=== PATIENT | female | born 1935 | race Caucasian/White ===

== ENCOUNTER 2017-05-26 06:33 | Observation (INO) | payer MEDICARE ==
[~2017-05-26] VITALS: Ht 167.6 cm; Wt 76.8 kg
[~2017-05-26 06:33] MED LIST: B-121000 MC1 PO; DONEPEZIL 10MG10 MG PO; EVISTA60 MG PO; IMODIUM 2MG. CAP2 MG PO; IMODIUM A-1 MG/7.5 M PO; MELATIN1 TAB PO; OMEPRAZOLE40 MG PO; RISPERDAL 0.50.5 MG PO; RISPERDAL0.5 MG PO; VITAMIN D31000 IU PO; VITAMIN D400 I1 PO; VITAMIN D50000 I1 PO; ZOFRAN ODT4 MG PO
[2017-05-26 06:39] VITALS: BP 144/81
[2017-05-26 06:43] LABS: LYMPH # 2.2 K/mm3 (0.7-4.5); LYMPH % 29.3 % (10-50.0)
[2017-05-26 06:46] LABS: HEMOGLOBIN 14.7 g/dL (12.2-16.2)
[2017-05-26 06:53] LABS: BUN 13 mg/dL (7-18)
[2017-05-26 06:54] LABS: GFR (ESTIMATED) 53 ML/MIN (59-)
--- NOTE | 2017-05-26 07:26 | RADIOLOGY REPORT PS360 ---
CT HEAD W/O CONTRAST HISTORY: Altered mental status, memory loss, altered level of consciousness AMS ORDERING PHYSICIAN: Sly Noonan MD PATIENT AGE: 82 years COMPARISON: None TECHNIQUE: Axial images obtained without contrast. Brain and bone windows reviewed. FINDINGS: No midline shift, mass effect, intracranial hemorrhage, hydrocephalus, or extra-axial fluid collection is evident. There is generalized atrophy with hypoattenuation in periventricular region consistent with ischemic gliotic change from microvascular disease. The calvarium has an unremarkable appearance. No mastoid effusion. The visualized paranasal sinuses are unremarkable. IMPRESSION: 1. No acute finding. 2. Atrophy with chronic ischemic change.
--- NOTE | 2017-05-26 07:43 | Emergency Room Report ---
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 STAFF WITNESSED THIS EVENT WHEN TAKING HER TO BATHROOM AT APPROX 0520. FSBS PER EMS 116. 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 N Clinical Suspician of Infection? N Mental Status: 1 - Regular (Normal Baseline) Sepsis Risk:Low Sepsis Risk Have you (or family members/close friends) recently traveled outside the [place]? N If Yes, where/when: Have you had exposure to infectious disease within the past month? N TB? Other? Specify: Source patient, RN notes reviewed, EMS, care home records, old records Exam Limitations no limitations Comment pt with acute onset of slurred speech and dec use of lt side this am- no chest pain or trauma Cardiac Chest Pain Chest pain indicative of cardiac No Timing/Duration this evening Severity moderate ALLERGIES Coded Allergies: No Known Allergies (01/27/16) Home Medications Reported Medications MELATONIN (Melatin) 3 MG PO QHS PRN SLEEP Risperidone (Risperdal 0.5 Mg Tablet) 0.5 MG PO QHSP PRN BIPOLAR DISORDER CHOLECALCIFEROL (VITAMIN D3) (Vitamin D3) 400 UNITS PO DAILY Cyanocobalamin (Vitamin B-12) (B-12) 1,000 MCG PO DAILY DONEPEZIL HCL (Donepezil 10MG Tablet) 10 MG PO QHS Omeprazole (Omeprazole 40MG) 40 MG PO DAILY RALOXIFENE HCL (Evista) 60 MG PO DAILY Risperidone (Risperdal) 0.5 MG PO BID ERGOCALCIFEROL (VITAMIN D2) (Vitamin D2) 50,000 IUNITS PO WEEKLY Ondansetron (Zofran 4MG Odt) 4 MG PO Q6HP PRN NAUSEA AND VOMITING History Medical History General CAD? No Angina: No [place]: No Hypertension? Yes Hyperlipidemia? Yes CHF? No DVT? No PE? No COPD? No Asthma? No Anemia? No GERD? Yes Gastric ulcers? No GI Bleed? No Hernia? No Thyroid Problems? No Hypothyroidism? No CVA? No Seizures? No Diabetes? Yes Insulin Dependent: No Insulin Pump: No Home FSBS? Yes Renal Insuffiency? No End Stage Renal Disease? No UTI? No Stones? No BPH? No GB Disease: No Nephritic Syndrome? No Asplenia? No Hepatitis? No Sickle Cell Disease? No Arthritis? No Migraines? No Cataracts? No Glaucoma? No MRSA? No HIV? No TB? No Anxiety? No Depression? No Cancer? No More? No Immunization Hx DT/Tetanus Unknown Pneumonia Unknown Surgical Hx Previous Surgery?Y ANKLE HYSTERECTOMY Family History Family Hx Diabetes Yes CAD Yes Hypertension Yes Hyperlipidemia Yes Cancer No TB No Social History Smoking Hx Smoker: Unknown if Ever Smoked Tobacco: No Packs/day N/A Alcohol Alcohol: No Drugs none Review of Systems All Other Systems Reviewed and Negative Constitutional denies fever Eyes denies drainage ENT denies: ear discharge, epistaxis, throat pain. Respiratory denies cough, denies shortness of breath, denies wheezing Cardiovascular denies chest pain, denies syncope Gastrointestinal denies abdominal pain, denies diarrhea, denies vomiting Genitourinary denies: dysuria, frequency, hesitancy, hematuria. Musculoskeletal denies back pain, denies joint pain, denies joint swelling, denies neck pain Skin denies rash Psychiatric/Neurological see HPI, denies seizure, other Physical Exam Vital Signs Vital Signs Date Time Temp Pulse Resp B/P Pulse O2 O2 Flow FiO2 Ox Delivery Rate 05/26 0728 75 20 144/81 96 05/26 0639 98.3 70 20 144/81 92 - WBC >12,000 or <4,000 or 10% bands? 2 or more SIRS Criteria Met? B/P:144/81 MAP:102 Creatinine >2.0? UA output<0.5ml/kg/hr for 2 hrs? Platelet count >100,000? Lactate >2.0mmol/1? INR >1.2 or PTT > than 60 sec? Evidence of Organ Dysfunction? Provider documented clinical suspician of infection? N Sepsis Criteria Count: 1 Sepsis Risk: Low Sepsis Risk General Appearance no apparent distress Eye Exam - bilateral eye PERRL, bilateral eye EOMI Ear, Nose, Throat normal ENT inspection Neck non-tender Respiratory Status No: respiratory distress. Lung Sounds bilateral: lungs clear. Cardiovascular regular rate/rhythm, systolic murmur Peripheral Pulses Pulses normal Yes Gastrointestinal soft, no organomegaly, no pulsatile mass, no guarding, no rebound Extremities normal inspection, no calf tenderness Strength 4 Upper Ext (L), 4 Upper Ext (R), 4 Lower Ext (L), 4 Lower Ext (R) Rectal normal rectal tone, soft impaction Nurse present during exam? 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 No Results/Orders Laboratory Tests 05/26/17619: Sodium 142, Potassium 4.1, Chloride 107, Carbon Dioxide 30, BUN 13, Creatinine 1.0, Estimated GFR (MDRD) 53 L, Glucose 101, Calcium 9.7 05/26/17619: Total Bilirubin 0.3, Direct Bilirubin 0.08, Indirect Bilirubin 0.22, AST 18, ALT 20, Alkaline Phosphatase 78, Creatine Kinase 35, CK-MB (CK-2) Rel Index 1.4, CK and CKMB Interp < 0.5, Troponin I < 0.02, Total Protein 7.4, Albumin 3.5, WBC 7.3, RBC 4.94, Hgb 14.7, Hct 45.4, MCV 91.9, RDW 13.3, Plt Count 180, MPV 7.0 L , Gran % 64.9, Gran # 4.8, Lymphocytes % 29.3, Monocytes % 3.8, Eosinophils % 1.6, Basophils % 0.3, Lymphocytes # 2.2, Monocytes # 0.3, Eosinophils # 0.1, Basophils # 0.0, PUBS MCHC 32.4, MCH 29.8 Current Medication Orders Sig/Chon Start time Last Medication Dose Route Stop Time Status Admin Sodium Chloride 10 ML PRN PRN 05/26 645 AC IV 05/27 639 Orders Procedure Date/time Status DIET-NOTHING BY MOUTH 05/26 B Active Decision to admit 05/26 820 Active LIVER PROFILE 05/26 741 Complete CARDIAC ENZYMES 05/26 741 Complete ELECTROCARDIOGRAM REQUEST 05/26 715 Active IV SALINE LOCK 05/26 639 Active FSBS REQUEST BY CARE AREA 05/26 639 Active BASIC METABOLIC PROFILE 05/[address] HEAD REQ 05/[address] ABD/PELVIS REQ 05/26 638 Complete CBC WITH AUTO DIFF 05/26 638 Complete 12 LEAD EKG-CECI (INITIAL) 05/[address] ABD & PELVIS W/O CONTRAST 05/26 UNK Active CM/EKG CM/technical specialist cytology Rhythm Normal Sinus Rhythm EKG non-spec. ST/Twave chgs XRAY/CT/US XRAY/CT/US CT head, abdomen, pelvis CT interpretation by discussed w/radiologist Time results known: 741 CT Results abnormal (see reports) Departure Departure Time of Disposition 0759 Disposition Still a Patient Clinical Impression Primary Impression: TIA (transient ischemic attack) Qualifiers: Transient cerebral ischemia type: unspecified Qualified Code: G45.9 - Transient cerebral ischemic attack, unspecified Secondary Impressions: Fecal impaction in rectum Condition STABLE Referrals Sly Avila MD discussed with dr avila office and dr thornton ED Critical Care Critical Care No at 0830
--- OUTSIDE RECORDS SUMMARY | 2017-05-26 08:07 | External Medical Summary Rpt | CCD ---
Author Author [employer] Organization [employer] Address Unknown Phone Unavailable Purpose Continuity of Care Document - through 2016
--- OUTSIDE RECORDS SUMMARY | 2017-05-26 08:07 | External Medical Summary Rpt | CCD ---
Demographics Preferred Language Chilean Marital Status Unknown Judaism Affiliation Unknown Race Unknown Ethnic Group Unknown Author Author , HILARIO RICH Address Unknown Phone Immunization No patient found.
--- OUTSIDE RECORDS SUMMARY | 2017-05-26 08:07 | External Medical Summary Rpt | CCD ---
Author Author , HILARIO Organization HILARIO Address Unknown Phone [email or web address] Purpose Continuity of Care Document - 05-26-2017 through 2016 Results Labs Lab Lab Date Result Refere Interp Status Commen Order Detail nces retati t Range on CBC w auto diff (05-26-2017 06:20) Baso % = 0.3 % 0.1-2.0 complet 017 ed 06:20 Automat = 0.1 0.0-0.4 complet ed 017 K/mm3 ed blood 06:20 eosinop hil count Automat = 1.6 % 0.1-12. complet ed 017 0 ed blood 06:20 eosinop hils/10 0 leukocy t Blood = 4.8 1.8-7.8 complet granulo 017 K/mm3 ed cytes 06:20 automat ed count (numb Granulo = 64.9 37.0-80 complet cyte 017 % .0 ed percent 06:20 age Blood = 45.4 37.0-47 complet hematoc 017 % .0 ed rit 06:20 (volume fractio n) Blood = 14.7 12.2-16 complet hemoglo 017 g/dL .2 ed bin 06:20 measure ment (mass/v olum Absolut = 2.2 0.7-4.5 complet e 017 K/mm3 ed lymphoc 06:20 yte count Lymphoc = 29.3 10-50.0 complet yte 017 % ed count, 06:20 blood, automat ed Mean = 29.8 27-31.2 complet corpusc 017 pg ed ular 06:20 hemoglo bin (MCH) determ Automat = 32.4 31.8-35 complet ed 017 g/dl .4 ed erythro 06:20 cyte mean corpusc ular h Automat = 91.9 82.2-97 complet ed 017 fl .8 ed erythro 06:20 cyte mean corpusc ular v Absolut = 0.3 0.1-1.0 complet e 017 K/mm3 ed monocyt 06:20 e count Weber % = 3.8 % 1.7-9.3 complet 017 ed 06:20 Automat = 7.0 7.4-10. complet ed 017 fl 4 ed blood 06:20 platele t mean volume marion Blood = 180 142-424 complet platele 017 K/mm3 ed t count 06:20 Red = 4.94 4.2-5.4 complet blood 017 M/mm3 ed cell 06:20 count Automat = 13.3 11.5-17 complet ed 017 % .5 ed erythro 06:20 cyte distrib ution width Blood = 7.3 4.8-10. complet leukocy 017 K/MM3 8 ed ana 06:20 count (number /volume ) Automat = 0.0 0-0.2 complet ed 017 K/MM3 ed blood 06:20 basophi l count (count/ vo Basic metabolic panel (05-26-2017 06:20) Serum = 13 7-18 complet or 017 mg/dL ed plasma 06:20 urea nitroge n measure men Serum = 9.7 8.5-10. complet or 017 mg/dL 1 ed plasma 06:20 calcium measure ment (mas Serum = 107 98-107 complet or 017 mmoL/L ed plasma 06:20 chlorid e measure ment (mo Carbon = 30 21.0-32 complet dioxide 017 mmoL/L .0 ed 06:20 measure ment Serum = 1.0 0.55-1. complet or 017 mg/dL 02 ed plasma 06:20 creatin ine measure ment ( Estimat = 53 59- complet ed 017 ML/MIN ed glomeru 06:20 lar filtrat ion rate (GF Comment: REFERENCE RANGE: >60 ML/MIN/1.73 SQUARE METERS Comment: If this patient is -Zimbabwean, then multiply the Comment: result by 1.210. Serum 12--2 = 101 74-106 complet or 017 mg/dL ed plasma 06:20 glucose measure ment (mas Serum 05-26-2 = 4.1 3.5-5.1 complet potassi 017 mmoL/L ed um 06:20 measure ment Serum 2 = 142 136-145 complet sodium 017 mmoL/L ed measure 06:20 ment
--- OUTSIDE RECORDS SUMMARY | 2017-05-26 08:07 | External Medical Summary Rpt | CCD ---
Author Author , HILARIO Organization HILARIO Address Unknown Phone [email or web address] Purpose Continuity of Care Document - 05-26-2017 [...] 017 K/mm3 ed monocyt 06:20 e count Wilson % = 3.8 % 1.7-9.3 complet 017 [...] SQUARE METERS Comment: If this patient is -Romanian, then multiply the Comment: result by 1.210. Serum 12--2 = 101 74-106 complet or 017 mg/dL ed plasma 06:20 glucose measure ment (mas Serum 05-26-2 = 4.1 3.5-5.1 complet potassi 017 mmoL/L ed um 06:20 measure ment Serum 2 = 142 136-145 complet sodium 017 mmoL/L ed measure 06:20 ment
--- OUTSIDE RECORDS SUMMARY | 2017-05-26 08:07 | External Medical Summary Rpt | CCD ---
Demographics Preferred Language Rwandan Marital Status Unknown Hoahaoism Affiliation Unknown Race Unknown Ethnic Group Unknown Author Author , HILARIO RICH Address Unknown Phone Immunization No patient found.
--- OUTSIDE RECORDS SUMMARY | 2017-05-26 08:08 | External Medical Summary Rpt ---
Author Author HILARIO Whyte, [employer] Organization [employer] Address Unknown Phone Unavailable Payers Section Payer Plan Name Group ID Member ID Coverage [place]age [place] [id number]^[facility] [id number] Jun 26 No JANNA 2011 informati MEDICARE on in HMO MR source data
--- OUTSIDE RECORDS SUMMARY | 2017-05-26 08:08 | External Medical Summary Rpt ---
Author Author HILARIO Whyte, [employer] Organization [employer] Address Unknown Phone Unavailable Payers Section Payer Plan Name Group ID Member ID Coverage [place] [id number]^[facility] [id number] Jun 26 No JANNA 2011 informati MEDICARE on in HMO MR source data
[2017-05-26 08:17] LABS: BILIRUBIN, INDIRECT 0.22 mg/dL (0-0.9)
--- OUTSIDE RECORDS SUMMARY | 2017-05-26 08:30 | External Medical Summary Rpt ---
Author Author HILARIO Whyte, [employer] Organization [employer] Address Unknown Phone Unavailable Payers Section Payer Plan Name Group ID Member ID Coverage [place]age [place] [id number]^[facility] [id number] Jun 26 No JANNA 2011 informati MEDICARE on in HMO MR source data
--- OUTSIDE RECORDS SUMMARY | 2017-05-26 08:30 | External Medical Summary Rpt ---
Author Author HILARIO Whyte, [employer] Organization [employer] Address Unknown Phone Unavailable Payers Section Payer Plan Name Group ID Member ID Coverage [place]age [place] [id number]^[facility] [id number] Jun 26 No JANNA 2011 informati MEDICARE on in HMO MR source data
--- OUTSIDE RECORDS SUMMARY | 2017-05-26 08:30 | External Medical Summary Rpt | CCD ---
Demographics Preferred Language Ethiopian Marital Status Unknown Catholic Affiliation Unknown Race Unknown Ethnic Group Unknown Author Author , HILARIO RICH Address Unknown Phone Immunization No patient found.
--- OUTSIDE RECORDS SUMMARY | 2017-05-26 08:30 | External Medical Summary Rpt | CCD ---
Author Author , HILARIO Organization HILARIO Address Unknown Phone [email or web address] Purpose Continuity of Care Document - 05-26-2017 through 2016 Problems Code Diagnosis DOS Provider Status G45.9 TRANSIENT CEREBRAL ISCHEMIC ATTACK, UNSPECIFIED K56.41 FECAL IMPACTION K59.39 OTHER MEGACOLON Results Labs Lab Lab Date Result Refere [...] 017 K/mm3 ed monocyt 06:20 e count [place] % = 3.8 % 1.7-9.3 complet 017 [...] 06:20 creatin ine measure ment ( Estimat 12-01-2 = 53 59- complet ed 017 ML/MIN ed glomeru 06:20 lar filtrat ion rate (GF Comment: REFERENCE RANGE: >60 ML/MIN/1.73 SQUARE METERS Comment: If this patient is -Bruneian, then multiply the Comment: result by 1.210. Serum = 101 74-106 complet or 017 mg/dL ed plasma 06:20 glucose measure ment (mas Serum = 4.1 3.5-5.1 complet potassi 017 mmoL/L ed um 06:20 measure ment Serum = 142 136-145 complet sodium 017 mmoL/L ed measure 06:20 ment Cardiac enzymes (05-26-2017 06:20) Serum = 1.4 0-4.0 complet or 017 U/L ed plasma 06:20 creatin e kinase MB (CK-M Serum < 0.5 0.0-3.6 complet or 017 ng/mL ed plasma 06:20 creatin e kinase MB measu Serum = 35 26-192 complet or 017 U/L ed plasma 06:20 creatin e kinase measure m Serum < 0.02 0.00-0. complet or 017 ng/mL 06 ed plasma 06:20 troponi n i.cardi ac measu Liver function panel (05-26-2017 06:20) Serum = 3.5 3.4-5.0 complet or 017 gm/dL ed plasma 06:20 albumin measure ment ([facility] Serum = 78 46-116 complet or 017 U/L ed plasma 06:20 alkalin e phospha tase marion Bilirub = 0.08 0.0-0.2 complet in 017 mg/dL ed direct 06:20 Serum = 0.22 0-0.9 complet or 017 mg/dL ed plasma 06:20 indirec t bilirub in measu Serum = 0.3 0.2-1.0 complet or 017 mg/dL ed plasma 06:20 total bilirub in measure m Serum = 18 15-37 complet or 017 U/L ed plasma 06:20 asparta te aminotr ansfera ALT 12-01-2 = 20 12-78 complet (SGPT) 017 U/L ed ser/kian 06:20 s Protein 05-26-2 = 7.4 6.4-8.2 complet total 017 gm/dL ed ser/kian 06:20 s
--- OUTSIDE RECORDS SUMMARY | 2017-05-26 08:30 | External Medical Summary Rpt | CCD ---
Author Author , HILARIO Organization HILARIO Address Unknown Phone [email or web address] Purpose Continuity of Care Document - 05-26-2017 [...] 017 K/mm3 ed monocyt 06:20 e count [place] % = 3.8 % 1.7-9.3 complet 017 [...] SQUARE METERS Comment: If this patient is -[place] Islander, then multiply the Comment: result by 1.210. [...] gm/dL ed plasma 06:20 albumin measure ment ([facility] Serum = 78 46-116 complet or 017 [...]
--- OUTSIDE RECORDS SUMMARY | 2017-05-26 08:30 | External Medical Summary Rpt | CCD ---
Demographics Preferred Language [place] Islander Marital Status Unknown Jew Affiliation Unknown Race Unknown Ethnic Group Unknown Author Author , HILARIO RICH Address Unknown Phone Immunization No patient found.
[2017-05-26 09:30] VITALS: BP 160/86
--- NOTE | 2017-05-26 09:41 | RADIOLOGY REPORT PS360 ---
CT ABD PELVIS W/O CONTRAST CLINICAL INDICATION: Abdominal distention, bloating ABD DISTENTION ORDERING PHYSICIAN: Sly Noonan MD PATIENT AGE: 82 years COMPARISON: 01/27/2016 TECHNIQUE: Axial images obtained with sagittal and coronal reformats. PROCEDURE: Oral Contrast: None IV Contrast: None . FINDINGS: There are trace bilateral pleural effusions with a moderate sized hiatal hernia noted. There is mild thickening of the pericardium. The liver is unremarkable. Increased density is present in the lower aspect of the gallbladder toward the neck consistent with gallstones. This could be confirmed with ultrasound if clinically warranted. Only, pancreas, and adrenal glands are unremarkable. No renal calculi or hydronephrosis. There is a large amount of stool with extensive distention of the rectosigmoid colon which is most prominent at the sigmoid region with the sigmoid colon measuring up to 14 cm in width consistent with constipation/fecal impaction. No evidence of small bowel obstruction. No focal inflammatory change apparent. 30 chain changes in the thoracic spine. The appendix is not clearly delineated. IMPRESSION: 1. Extensive constipation with dilatation of the sigmoid colon up to 14 cm in diameter. This is similar when compared to the previous exam. 2. Moderate-sized hiatal hernia. Small bilateral pleural effusions 3. Suspect cholelithiasis
[2017-05-26] MEDS ORDERED: BUSPAR 10MG TAB10 MG PO (09:50)
[2017-05-26] MEDS ORDERED: TRAZODONE50 MG PO (09:50)
[2017-05-26] MEDS ORDERED: QUETIAPINE FUMA50 M1 PO (09:51)
[2017-05-26] MEDS ORDERED: SERTRALINE 50MG50 MG PO (09:51)
[2017-05-26] MEDS ORDERED: HYDROCORT 1% CR30 GM TP (09:52)
[2017-05-26] MEDS ORDERED: MECLIZINE HYDRO25 M2 PO (09:53)
[2017-05-26] MEDS ORDERED: ACETAMINOPHEN500 M3 PO ×2 (09:54→09:55)
[2017-05-26] MEDS ORDERED: SEROQUEL50 MG PO (09:55)
[2017-05-26] MEDS ORDERED: TRIAMCINOL15 GM/TUBE TP (09:56)
[2017-05-26] MEDS ORDERED: ACIDOPHILUS LA1 EACH PO (09:57)
[2017-05-26] MEDS ORDERED: NYSTATIN 1 ML1 M1 (09:58)
[2017-05-26 10:35] VITALS: BP 145/79
--- NOTE | 2017-05-26 11:04 | CONSULT NOTE ---
Standard Demographics Patient Demo Date of Consultation: 05/26/17 Referring Provider: Sly Noonan MD Reason for Consultation: colon distention PRIMARY DIAGNOSIS: TIA Allergies: Coded Allergies: No Known Allergies (01/27/16) History of Present Illness Chief Complaint: No complaints History of Present Illness: Patient is an 82-year-old white female with dementia [place] [facility] [place] admitted a bit over a year ago at which time she was found to have massively distended colon. She underwent bowel regimen and ultimately had a Gastrografin enema which revealed no mass lesion or obstruction. This was felt to be chronic constipation with some degree of possible pseudoobstruction. She did undergo flexible sigmoidoscopy with decompression which was followed several days later by complete colonoscopy with decompression. Her bowel prep was poor however. She was brought to the emergency department by EMS from [facility] this morning with reported mental status changes. She underwent CT scan of the abdomen and pelvis as part of her workup in the emergency department and this revealed a distended distal colon full stool. Surgical consultation was obtained. Patient is without any significant complaints. When questioned specifically about her abdomen she states that her "belly does feel kind of funny". Past Medical History Reports: hypertension, diabetes mellitus. Surgical History Previous Surgery?Y ANKLE HYSTERECTOMY Allergies Coded Allergies: No Known Allergies (01/27/16) Medications: Reported Medications CHOLECALCIFEROL (VITAMIN D3) (Vitamin D3) 400 UNITS PO DAILY Cyanocobalamin (Vitamin B-12) (B-12) 1,000 MCG PO DAILY Trazodone Hcl (Trazodone HCl) 50 MG PO QHS #30 Buspirone Hcl (Buspar 10MG) 10 MG PO TID #90 Quetiapine Fumarate 50 MG PO DAILY #90 Sertraline Hcl (Sertraline 50MG) 25 MG PO DAILYP PRN MOOD #30 HYDROCORTISONE (Hydrocort 1% Cream 30 Gm.) 1 JESUS TP BID #28 MECLIZINE HCL (ANTIVERT 25MG (generic)) 25 MG PO TIDP PRN VERTIGO #30 Acetaminophen (Acetaminophen Extra Strength) 500 MG PO Q4HP PRN PAIN/FEVER Acetaminophen (Acetaminophen Extra Strength) 500 MG PO TID Quetiapine Fumarate (Seroquel 50MG) 50 MG PO DAILY TRIAMCINOLONE ACETONIDE (Triamcinolone 0.5% Cream) 1 JESUS TP QIDP PRN REDNESS AND ITCHING TO FACE Lactobacillus Acidophilus (Acidophilus Lactobacillus) 1 EACH PO DAILY Nystatin (Nystatin 1 Ml) 1 ML NA TIDP PRN REDNESS IN GROIN AREA DONEPEZIL HCL (Donepezil 10MG Tablet) 10 MG PO QHS RALOXIFENE HCL (Evista) 60 MG PO DAILY Ondansetron (Zofran 4MG Odt) 4 MG PO Q6HP PRN NAUSEA AND VOMITING Smoking Hx Tobacco: No Smoker: Never Smoker Type: N/A Packs/day: N/A Are you/the child exposed to second-hand smoke: No Alcohol Alcohol: No Hx of Drug Use Drug Use? No Review of Systems Additional information: Unable to obtain reliable review of systems secondary to patient's baseline dementia Physical Exam VS/I&O Vital Signs Date Time Temp Pulse Resp B/P Pulse O2 O2 Flow FiO2 Ox Delivery Rate 05/26 1035 97.8 71 20 145/79 94 ROOM AIR 05/26 0930 67 05/26 0930 98.3 67 20 160/86 05/26 0930 99 ROOM AIR 05/26 0915 98.3 67 20 160/86 99 05/26 0833 67 20 160/86 99 05/26 0728 75 20 144/81 96 05/26 0639 98.3 70 20 144/81 92 I&O 05/26 0700 Intake Total Output Total Balance Patient 175 lb Weight Exam General appearance no acute distress Respiratory clear to auscultation Cardiovascular normal heart sounds Abdomen non-tender, distended Plan Plan: This appears as though the patient likely has chronic constipation. I will order enemas. at 1104
--- NOTE | 2017-05-26 11:21 | CARDIOVASCULAR REPORT ---
"Cerebrovascular Exam Indications: TIA 434.91. IMPRESSIONS 1. The bilateral vertebral arteries are patent with normal antegrade flow. 2. Study suggests less than 20% stenosis involving the right internal carotid artery and the left internal carotid artery. Carotid duplex study. Complete study and Doppler flow study including spectral analysis, color and dawkins scale imaging. Height: Height: 167.6cm. Height: 66in. Weight: Weight: 79.4kg. Weight: 174.6lb. Body mass index: BMI: 28.2kg/m^2. Body surface area: BSA: 1.94m^2. Location: Bedside. Patient status: Inpatient. Tables: Arterial flow: + +--------+--------+ |Location |V sys |V ed | + +--------+--------+ |Right CCA - proximal|37.3cm/s|11.4cm/s| + +--------+--------+ |Right CCA - distal |47.5cm/s|13cm/s | + +--------+--------+ |Right ECA |68.4cm/s|--------| + +--------+--------+ |Right ICA - proximal|44.7cm/s|9.8cm/s | + +--------+--------+ |Right ICA - mid |45cm/s |18.5cm/s| + +--------+--------+ |Right ICA - distal |67.4cm/s|21.3cm/s| + +--------+--------+ |Right vertebral |27.4cm/s|--------| + +--------+--------+ |Left CCA - proximal |74.2cm/s|10.5cm/s| + +--------+--------+ |Left CCA - distal |57.6cm/s|13.1cm/s| + +--------+--------+ |Left ECA |52.8cm/s|--------| + +--------+--------+ |Left ICA - proximal |54.6cm/s|14cm/s | + +--------+--------+ |Left ICA - mid |62cm/s |18.8cm/s| + +--------+--------+ |Left ICA - distal |63.3cm/s|17.9cm/s| + +--------+--------+ |Left vertebral |49.8cm/s|--------| + +--------+--------+ Velocity ratios: + + + + + + | |Right, V sys|Right, V ed|Left, V sys|Left, V ed| + + + + + + |Max ICA/dist CCA|1.42 |1.64 |1.1 |1.44 | + + + + + + (Report amended ) Electronically signed by: Yehuda Renee [id number]"
--- NOTE | 2017-05-26 15:11 | HISTORY AND PHYSICAL REPORT ---
Demographics: Admit date: 05/26/17 Chief complaint: mental status change PRIMARY DIAGNOSIS: TIA Allergies: Coded Allergies: No Known Allergies (01/27/16) History of present illness: History of present illness: 82 yr old female admitted from ED after presenting from [facility] with acute onset neurologic symptoms. intermediate reports to me that they had gotten her up to the bathroom when she had sudden onset abnormal speech, uncomprehensible sounds and unilateral weakness. CT head was negative for acute changes but CT abdomen shows significantly distended sigmoid colon and constipation/impaction so she was admitted for management. At time of my exam she is neurologically at her baseline. She does complain of some abdominal pain with direct questioning but really not able to quantify/ qualify her discomfort. Past medical history: Family HX Diabetes Yes CAD Yes Hypertension Yes Hyperlipidemia Yes Cancer No TB No Immunization HX DT/Tetanus Unknown Flu 2016-SN Pneumonia Received In Past TB Test in last year Yes Result Negative General CAD? No Angina: No CA: No Hypertension? Yes Hyperlipidemia? Yes CHF? No DVT? No PE? No COPD? No Asthma? No Anemia? No GERD? Yes Gastric ulcers? No GI Bleed? No Hernia? No Thyroid Problems? No Hypothyroidism? No CVA? Yes Seizures? No Diabetes? Yes Insulin Dependent: No Insulin Pump: No Home FSBS? Yes Renal Insuffiency? No UTI? No Stones? No BPH? No GB Disease: No Nephritic Syndrome? No Asplenia? No Hepatitis? No Sickle Cell Disease? No Arthritis? No Migraines? No Cataracts? No Glaucoma? No MRSA? No HIV? No TB? No Anxiety? No Depression? No Cancer? No More? No Past Surgical HX Previous Surgery?Y ANKLE HYSTERECTOMY Current home meds: Reported Medications CHOLECALCIFEROL (VITAMIN D3) (Vitamin D3) 400 UNITS PO DAILY Cyanocobalamin (Vitamin B-12) (B-12) 1,000 MCG PO DAILY Quetiapine Fumarate 100 MG PO QHS #90 TAB Trazodone Hcl (Trazodone HCl) 50 MG PO QHS #30 Buspirone Hcl (Buspar 10MG) 10 MG PO TID #90 HYDROCORTISONE (Hydrocort 1% Cream 30 Gm.) 1 JESUS TP BID #28 MECLIZINE HCL (ANTIVERT 25MG (generic)) 25 MG PO TIDP PRN VERTIGO #30 Acetaminophen (Acetaminophen Extra Strength) 500 MG PO Q4HP PRN PAIN/FEVER Acetaminophen (Acetaminophen Extra Strength) 500 MG PO TID Quetiapine Fumarate (Seroquel 50MG) 50 MG PO DAILY TRIAMCINOLONE ACETONIDE (Triamcinolone 0.5% Cream) 1 JESUS TP QIDP PRN REDNESS AND ITCHING TO FACE Lactobacillus Acidophilus (Acidophilus Lactobacillus) 1 EACH PO DAILY Nystatin (Nystatin 1 Ml) 1 ML NA TIDP PRN REDNESS IN GROIN AREA DONEPEZIL HCL (Donepezil 10MG Tablet) 10 MG PO QHS Ondansetron (Zofran 4MG Odt) 4 MG PO Q6HP PRN NAUSEA AND VOMITING Discontinued Reported Medications Sertraline Hcl (Sertraline 50MG) 25 MG PO DAILYP PRN MOOD #30 DC: 05/26/17 1300 RALOXIFENE HCL (Evista) 60 MG PO DAILY Social Hx: Smoking HX Tobacco No Type N/A Packs/day N/A Are you/the child exposed to second-hand smoke: No Alcohol Alcohol: No Hx of Drug Use Drug Use? No Patien't marital status is single Patient's support system is fair Comment: Lives in long-term care domingo Norman is next of kin Review of systems: Constitutional No: no symptoms reported. Eyes No: no symptoms reported. Ears, Nose, Mouth, Throat No no symptoms reported Respiratory No: no symptoms reported. Cardiovascular No no symptoms reported Gastrointestinal/Abdominal abdomen distended, abdominal pain, constipated, other (staff report 2-3 BM daily ) Genitourinary No: no symptoms reported. Musculoskeletal joint pain (ankle, chronic). Skin No: no symptoms reported. Neurological Yes: see HPI. Psychiatric Yes: anxious (chronic). Exam: Lab data for last 24 hours: Laboratory Tests 05/26/17 0620: Sodium 142, Potassium 4.1, Chloride 107, Carbon Dioxide 30, BUN 13, Creatinine 1.0, Estimated GFR (MDRD) 53 L, Glucose 101, Calcium 9.7 05/26/17 0620: Total Bilirubin 0.3, Direct Bilirubin 0.08, Indirect Bilirubin 0.22, AST 18, ALT 20, Alkaline Phosphatase 78, Creatine Kinase 35, CK-MB (CK-2) Rel Index 1.4, CK and CKMB Interp < 0.5, Troponin I < 0.02, Total Protein 7.4, Albumin 3.5, WBC 7.3, RBC 4.94, Hgb 14.7, Hct 45.4, MCV 91.9, RDW 13.3, Plt Count 180, MPV 7.0 L , Gran % 64.9, Gran # 4.8, Lymphocytes % 29.3, Monocytes % 3.8, Eosinophils % 1.6, Basophils % 0.3, Lymphocytes # 2.2, Monocytes # 0.3, Eosinophils # 0.1, Basophils # 0.0, PUBS MCHC 32.4, MCH 29.8 Admission vital signs: 1ST Vital Signs Result Date Time Pulse Ox 92 05/26 639 B/P 144/81 05/26 639 Temp 98.3 05/26 639 Pulse 70 05/26 639 Resp 20 05/26 639 O2 Delivery ROOM AIR 05/26 930 Additional information: Pleasant female, up in bedside chair in no distress. Oriented to person only, speech is at baseline with some hesitancy but normal content. She is able to read the writing on my shirt without difficulty. Moves all extremities, facial movement symetric. Heart with RRR, lungs clear, trace bilat ankle edema. Abdomen is soft, mildly distended, normal BS, mildly tender in the lower quadrants. Plan: Problem List 1. TIA (transient ischemic attack) Assessment/Plan CT head and carotid dopplers negative. Neurologic deficits quickly resolved. Consider add statin and ASA on return to long-term care 2. Fecal impaction in rectum Assessment/Plan consult with general surgery, Dr Mccoy, who recommended enemas. Monitor response 3. Megacolon 4. Dementia Assessment/Plan continue aricept and seroquel for behavior disturbance 5. Mood disorder Plan: see above at [id number]
[2017-05-26 16:00] VITALS: BP 133/77
[2017-05-26 20:00] VITALS: BP 130/77
[2017-05-26 21:00] VITALS: BP 130/77
[2017-05-27 04:22] VITALS: BP 86/35
[2017-05-27 04:44] VITALS: BP 125/83
[2017-05-27 07:34] VITALS: BP 151/90
[2017-05-27 07:45] LABS: HEMOGLOBIN 13.4 g/dL (12.2-16.2); LYMPH # 1.8 K/mm3 (0.7-4.5); LYMPH % 27.6 % (10-50.0)
--- NOTE | 2017-05-27 08:13 | ACUTE CARE PROGRESS NOTE (QUA) ---
Progress Notes Subjective Date 05/27/17 Time 0812 Note Patient is talkative, pleasantly demented and feels "lost" but has no complaints. Is hungry. Lungs are clear, heart rate regular. Abdomen is soft, minimally distended, vastly improved. Nurses report excellent output with milk of molasses enemas through the night. Objective Findings Last VS-Temp:97.4 B/P:151/90 Pulse:74 Resp:18 SaO2:95 ROOM AIR Last weight lbs:169 oz:6 K.828 Method:Bed Scales Assessment/Plan Problem List 1. TIA (transient ischemic attack) Qualifiers: Transient cerebral ischemia type: unspecified Qualified Code: G45.9 - Transient cerebral ischemic attack, unspecified 2. Fecal impaction in rectum 3. Megacolon 4. Dementia 5. Mood disorder Patient condition Improving Plan: continue current care, neurologic studies have been negative. Patient's neurologic status is stable. Fecal impaction resolving. We will feed breakfast. If she does well with this we will transfer back to [facility]. This inpt stay is expected to cross 2 MNs from start of care No at 0813
--- NOTE | 2017-05-27 08:13 | ACUTE CARE PROGRESS NOTE (QUA) ---
Progress Notes Subjective Date 05/27/17 Time 0812 Note Patient is talkative, pleasantly demented and feels "lost" but has no complaints. Is hungry. Lungs are clear, heart rate regular. Abdomen is soft, minimally distended, vastly improved. Nurses report excellent output with milk of molasses enemas through the night. Objective Findings Last VS-Temp:97.4 B/P:151/90 Pulse:74 Resp:18 SaO2:95 ROOM AIR Last weight lbs:169 oz:6 K.828 Method:Bed Scales Assessment/Plan Problem List 1. TIA (transient ischemic attack) Qualifiers: Transient cerebral ischemia type: unspecified Qualified Code: G45.9 - Transient cerebral ischemic attack, unspecified 2. Fecal impaction in rectum 3. Megacolon 4. Dementia 5. Mood disorder Patient condition Improving Plan: continue current care, neurologic studies have been negative. Patient's neurologic status is stable. Fecal impaction resolving. We will feed breakfast. If she does well with this we will transfer back to intermediate. This inpt stay is expected to cross 2 MNs from start of care No at 0813
--- NOTE | 2017-05-27 10:11 | SURGEON PROGRESS NOTE ---
Subjective data Subjective data: INES TONY is a 82 F .Patient denies complaint of nausea and vomitting.She reports her last pain level as 0 on a 0-10 pain scale. No complaints. Patient had very large bowel movement with enema last night. Assessment findings Assessment Exam General appearance: normal appearance, alert ABD: no tenderness Patient plan Plan: Advance diet Additional data: This appears to be more of a long standing chronic constipation and not colonic pseudo-obstruction. Had good result with M&M enema last night. Likely still has large amount of residual stool. Would recommend aggressive chronic bowel regimen at halfway. May benefit from gastroenterology outpatient input. at 1011
--- NOTE | 2017-05-27 10:11 | SURGEON PROGRESS NOTE ---
Subjective data Subjective data: INES TONY is a 82 F .Patient denies complaint of nausea and vomitting.She reports her last pain level as 0 on a 0-10 pain scale. No complaints. Patient had very large bowel movement with enema last night. Assessment findings Assessment Exam General appearance: normal appearance, alert ABD: no tenderness Patient plan Plan: Advance diet Additional data: This appears to be more of a long standing chronic constipation and not colonic pseudo-obstruction. Had good result with M&M enema last night. Likely still has large amount of residual stool. Would recommend aggressive chronic bowel regimen at longterm. May benefit from gastroenterology outpatient input. at 1011
--- NOTE | 2017-05-27 10:30 | DISCHARGE SUMMARY STANDARD ---
Demographics Admit date: 05/26/17 Discharge date: 05/27/17 History of present illness History of present illness 82 yr old female admitted from ED after presenting from [facility] with acute onset neurologic symptoms. long term reports to me that they had gotten her up to the bathroom when she had sudden onset abnormal speech, uncomprehensible sounds and unilateral weakness. CT head was negative for acute changes but CT abdomen shows significantly distended sigmoid colon and constipation/impaction so she was admitted for management. At time of my exam she is neurologically at her baseline. She does complain of some abdominal pain with direct questioning but really not able to quantify/ qualify her discomfort. Hospital Course Hospital Course: Patient was admitted, neurologic workup was done which revealed no evidence of stroke or neurologic changes over baseline. She was found to have fecal impaction issues, surgery was consulted and recommended aggressive lower bowel regimen. Milk and molasses enemas were given and patient responded very nicely with lots of stool output. She was able to E. well this morning and is back to her baseline. She was transferred back to her correction today, her medications will remain the same except we will initiate b.i.d. MiraLax therapy as noted in the reconciliation form and I would also recommend milk/molasses enemas daily for 3 days and then every other day at the first sign of constipation. Followup will be on a regular correction rounds. Discharge diagnoses Problem List 1. Fecal impaction in rectum 2. Megacolon 3. Dementia 4. Mood disorder Medications Medications: Discharge meds are as noted. Follow up Follow up in office in: 4 DAYS with: Patty Phelan APRN at [phone]
--- NOTE | 2017-05-27 10:30 | DISCHARGE SUMMARY STANDARD ---
Demographics Admit date: 05/26/17 Discharge date: 05/27/17 History of present illness History of present illness 82 yr old female admitted from ED after presenting from [facility] with acute onset neurologic symptoms. [facility] reports to me that they had gotten her up to the bathroom when she had sudden onset abnormal speech, uncomprehensible sounds and unilateral weakness. CT head was negative for acute changes but CT abdomen shows significantly distended sigmoid colon and constipation/impaction so she was admitted for management. At time of my exam she is neurologically at her baseline. She does complain of some abdominal pain with direct questioning but really not able to quantify/ qualify her discomfort. Hospital Course Hospital Course: Patient was admitted, neurologic workup was done which revealed no evidence of stroke or neurologic changes over baseline. She was found to have fecal impaction issues, surgery was consulted and recommended aggressive lower bowel regimen. Milk and molasses enemas were given and patient responded very nicely with lots of stool output. She was able to E. well this morning and is back to her baseline. She was [facility] back to her [facility] today, her medications will remain the same except we will initiate b.i.d. MiraLax therapy as noted in the reconciliation form and I would also recommend milk/molasses enemas daily for 3 days and then every other day at the first sign of constipation. Followup will be on a regular prison rounds. Discharge diagnoses Problem List 1. Fecal impaction in rectum 2. Megacolon 3. Dementia 4. Mood disorder Medications Medications: Discharge meds are as noted. Follow up Follow up in office in: 4 DAYS with: Patty Phelan APRN at [phone]
[2017-05-27] MEDS ORDERED: MIRALAX(PO17 GM/1 PA PO (10:31)
[2017-05-27 13:14] VITALS: BP 151/90
== END 2017-05-27 13:16 ==
LOC: ER 06:33 → 2ND 08:27 → ER 08:27 → 2ND 08:27
PROVIDERS: Emergency Medicine
DX: G45.9 Transient cerebral ischemic attack, unspecified (principal); I10 Essential (primary) hypertension; E11.9 Type 2 diabetes mellitus without complications; K59.09 Other constipation; F39 Unspecified mood [affective] disorder; F03.90 Unspecified dementia, unspecified severity, without behavioral disturbance, psychotic disturbance, mood disturbance, and anxiety; Z82.49 Family history of ischemic heart disease and other diseases of the circulatory system; Z83.49 Family history of other endocrine, nutritional and metabolic diseases; Z83.3 Family history of diabetes mellitus; Z79.899 Other long term (current) drug therapy
CPT/HCPCS: G0378